=== PATIENT | female | born 1950 | race Caucasian/White ===

== ENCOUNTER → 2017-04-20 | Outpatient (CLI) | payer MEDICARE, OTHER | END | disposition disaster alternative care site (69) | LOC: GAIR 13:24 | DX: I63.9 Cerebral infarction, unspecified (principal); I73.9 Peripheral vascular disease, unspecified; R40.20 Unspecified coma; Z79.82 Long term (current) use of aspirin; Z79.899 Other long term (current) drug therapy | CPT/HCPCS: A0422; A0431; A0436; J2250; J3010; J7050 ==